=== PATIENT | female | born 1980 | race Caucasian/White ===

== ENCOUNTER 2016-10-09 15:36 | Emergency (ER) | payer OTHER ==
[~2016-10-09] VITALS: Ht 167.6 cm; Wt 95.7 kg
[~2016-10-09 15:36] MED LIST: ATENOLOL50 MG PO; EXFORGE 10/31 TABLET PO; FIORICET,ESG1 TABLET PO; IMITREX100 MG PO; MOTRIN800 MG PO; NAPROSYN500 MG PO; PROMETHAZINE HC25 M1 PO; PSEUDOEPHEDRINE30 MG PO; REGLAN10 MG PO; TREXIMET 85-1 TABLET PO
[2016-10-09 17:34] LABS: ADD MIUA? YES; BILIRUBIN NEGATIVE; BLOOD MODERATE; COLOR YELLOW ((YELLOW)); GLUCOSE (STRIP) NEGATIVE; KETONES NEGATIVE; LEUKOCYTES NEGATIVE; NITRITE NEGATIVE; PROTEIN (STRIP) NEGATIVE; SPECIFIC GRAVITY 1.014 (1.000-1.030); UROBILINOGEN 0.2 MG/DL (0.2-1.0)
[2016-10-09 17:37] LABS: BACTERIA NONE SEEN /HPF; EPITHELIAL CELLS RARE /HPF; MUCUS TRACE /LPF; RED BLOOD CELLS 0-5 /HPF (0-5); UCUL ADDED? NO; WHITE BLOOD CELLS 0-5 /HPF (0-5)
[2016-10-09 17:47] LABS: HEMATOCRIT 42.7 % (36.0-46.0); MCH 25.8 PG (29.0-34.0); MCV 78.1 FL (83-99); MEAN PLAT.VOLUME 9.2 uM^3 (9.5-12.4); PLATELET COUNT 351 K/uL (156-360); RBC DIS.WIDTH-CV 14.8 % (11.8-14.6); RBC DIS.WIDTH-SD 40.9 % (39-53); RED BLOOD COUNT 5.47 M/uL (3.80-5.20); WHITE BLOOD COUNT 11.9 K/uL (4.1-10.2)
[2016-10-09] MEDS ORDERED: HYDROCHLOROTHIA25 MG PO (17:58)
[2016-10-09 17:59] LABS: CHLORIDE 105 mEq/L (99-109); SODIUM 139 mEq/L (136-147)
[2016-10-09] MEDS ORDERED: LOPRESSOR50 MG PO (17:59)
[2016-10-09] MEDS ORDERED: AMOX TR-K CLV1 EAC4 PO (17:59)
[2016-10-09 18:00] LABS: GLUCOSE 90 mg/dL (70-99)
[2016-10-09 18:01] LABS: ANION GAP 7 MEQ/L (2-14)
[2016-10-09 18:02] LABS: TOTAL BILIRUBIN 0.7 mg/dL (0.0-1.0)
[2016-10-09 18:03] LABS: ALKALINE PHOSPHATASE 63 IU/L (3-129)
[2016-10-09 18:04] LABS: GFR ESTIMATE (CALCULATED) > 59 mL/min/
[2016-10-09 18:05] LABS: UREA NITROGEN (BUN) 14 mg/dL (9-23)
[2016-10-09 18:10] LABS: TROP-I INTERPRETATION NEGATIVE; TROPONIN-I < 0.01 ng/mL (0.0-0.30)
[2016-10-09 18:12] LABS: QUANTITATIVE HCG < 4.0 MIU/ML
[2016-10-09 18:37] LABS: INTERNAL CONTROL VALID? YES; MONOSPOT (MONONUCLEOSIS SEROL) NEGATIVE
[2016-10-09 18:53] LABS: CREATINE KINASE 52 IU/L (1-294); SAMPLE HEMOLYSIS CHECK 0; SAMPLE ICTERIC CHECK 0; SAMPLE LIPEMIA CHECK 0
[2016-10-09 19:49] VITALS: BP 141/89
[2016-10-10 10:33] LABS: LYME DISEASE SEROLOGY SCREEN NEGATIVE (NEGATIVE)
[2016-10-10 21:11] LABS: THYROID PEROXIDASE AUTOABY 0.4 IU/mL (0-60)
== END 2016-10-09 19:51 | disposition home or self-care (01) ==
LOC: EME 15:36
PROVIDERS: Nurse Practitioner Psychiatric/Mental Health; Physician Assistant
DX: I10 Essential (primary) hypertension (principal); R53.83 Other fatigue; Z87.891 Personal history of nicotine dependence
CPT/HCPCS: 71020; 80053; 81003; 82550; 84439; 84443; 84481; 84484; 84702; 85027; 85379; 86308; 86376; 86618; 93005; 99281; 99283; Q0177